=== PATIENT | female | born 1955 | race Caucasian/White ===

== ENCOUNTER → 2018-09-25 | Outpatient (CLI) | payer BC | LOC: M.RAD 15:48 | DX: Z12.31 Encounter for screening mammogram for malignant neoplasm of breast (principal) ==

== ENCOUNTER 2019-06-23 18:55 | Emergency (ER) | payer OTHER ==
[~2019-06-23] VITALS: Ht 165.1 cm; Wt 83.9 kg
[2019-06-23] MEDS ORDERED: BRINTELLIX5 MG PO (19:17)
[2019-06-23] MEDS ORDERED: SINGULAIR 10 MG10 M1 PO (19:17)
[2019-06-23] MEDS ORDERED: SYNTHROID75 MCG PO (19:18)
[2019-06-23] MEDS ORDERED: NORCO 5-325 TA1 EAC1 PO (21:37)
[2019-06-23] MEDS ORDERED: FLEXERIL PO (21:37)
[2019-06-23 22:10] VITALS: BP 165/79
== END 2019-06-23 22:11 | disposition home or self-care (01) ==
LOC: M.ERS 18:55
DX: M25.561 Pain in right knee (principal); M62.838 Other muscle spasm; M54.6 Pain in thoracic spine; Z88.1 Allergy status to other antibiotic agents; Z91.040 Latex allergy status; Z88.2 Allergy status to sulfonamides; Z91.018 Allergy to other foods; Z98.890 Other specified postprocedural states; Z90.49 Acquired absence of other specified parts of digestive tract

== ENCOUNTER → 2019-09-24 | Outpatient (CLI) | payer OTHER ==
[~2019-09-24] MED LIST: BRINTELLIX5 MG PO; FLEXERIL PO; NORCO 5-325 TA1 EAC1 PO; SINGULAIR 10 MG10 M1 PO; SYNTHROID75 MCG PO
== END ==
LOC: M.RAD 10:19
DX: Z12.31 Encounter for screening mammogram for malignant neoplasm of breast (principal)